=== PATIENT | female | born 1945 | race Caucasian/White ===

== ENCOUNTER 2020-07-09 06:48 | Day surgery (SDC) | payer OTHER, MEDICARE ==
--- NOTE | 2020-06-28 13:14 | RAD REPORT ---
EXAM DESCRIPTION: Mehdi Moody And Brittany (2 Views)06/28/2020 12:58 pm CLINICAL HISTORY: Hypertension/preop for cardiac catheterization COMPARISON: 2017 FINDINGS: 4 centimeter nodule has developed within the right lung base. The remainder lungs appear clear of acute infiltrate. The heart is normal size IMPRESSION: 4 centimeter right lung nodule may represent neoplasm. CT chest is recommended
[2020-06-28 13:33] LABS: Absolute Lymphocytes (CBC) 2.4 K/uL (0.7-4.9); Basophils % 1.1 % (0-1.3); Hematocrit 35.3 % (36.0-45.0); Lymphocytes % 46.3 % (15.3-44.8); MPV 8.7 fL (7.6-11.3); RBC Red Blood Cell Count 3.82 M/uL (3.86-4.86)
[2020-06-28 13:42] LABS: Protime INR 1.06
[2020-06-28 14:00] LABS: Potassium 4.1 mmol/L (3.5-5.1)
--- NOTE | 2020-06-28 15:02 | EKG ---
Test Date: 2020-06-28 Test Time: 11:24:06 Microfilm Processor: AIDEN MEASUREMENT RESULTS: Intervals: Rate: 58 AK: 138 QRSD: 78 QT: 402 QTc: 394 Dalton: P: -30 AK: 138 QRS: 30 T: 66 INTERPRETIVE STATEMENTS: Undetermined rhythm Otherwise normal ECG No previous ECG available for comparison Electronically Signed On 06-28-20 15:01:45 CDT by Thom Montanez
[2020-07-09] MEDS ORDERED: HEPA 1000U/500MLS 2,000 UNIT/1,000 ML BAG IV ONE (07:21)
[2020-07-09] MEDS ORDERED: LIDOCAINE 1% 20 ML MDV ONE (07:21)
[2020-07-09] MEDS ORDERED: NA CHLORIDE 0.9% 500 ML ONE (07:36)
[2020-07-09] MEDS ORDERED: HEPARIN 5000 UNIT/ML 1 ML VIAL ONE (07:48)
[2020-07-09] MEDS ORDERED: MIDAZOLAM HCL 2 MG/2 ML INJ ONE ×2 (07:48→08:00)
[2020-07-09] MEDS ORDERED: FENTANYL CITR 100 MCG/2 ML ONE (07:49)
[2020-07-09] MEDS ORDERED: ATROPINE SULF 1 MG/10 ML SYR IV ONE (07:49)
--- NOTE | 2020-07-09 08:23 | OP ---
Surgeon: Thom Montanez MD Line Up Machine Operator: Mr. Fabian Kennedy. Abdominal aortic aneurysm status post endograft with possible leaks by CT angio. Ms. Sherman is 74, has had a history of hypertension dyslipidemia, PAD brought to the cardiac cath lab radiology technologist today o n 07/09/2020 at 7:30 in the morning. Procedure Performed: Abdominal angiogram. Indication: Abdominal aortic aneurysm. Description Of Procedure: The patient brought to the cardiac cath lab radiology technologist as an outpatient, prepped and draped i n routine sterile fashion. Given Versed and fentanyl for sedation. A 6-English sheath introduced in the right common femoral artery successfully. Angiography, there was normal. Angio-Seal was used to close the case. A pigtail catheter was advanced above the renals with a 6-English pigtail catheter. Abdominal angiogram revealed a normal endograft was patent. This was an aorto bi-iliac endograft. She had normal renals, no leaks, no dissection, no thrombus. There were no complications. Blood Loss: 5 mL. Anesthesia: Total conscious sedation was 45 minutes. Postoperative Diagnosis: Abdominal aortic aneurysm status post endograft that is patent without any leaks. Plan: To continue medical therapy. The patient will go home in 2 hours. TOMMIE/CHAS Voice ID: [id number] Report ID: [id number]
[2020-07-09 08:42] VITALS: TEMP 97
[2020-07-09 09:41] VITALS: O2SAT 100
[2020-07-09 10:04] VITALS: BP 115/69
== END 2020-07-09 10:08 | disposition home or self-care (01) ==
LOC: CCL 06:48
DX: I71.4 Abdominal aortic aneurysm, without rupture (principal); I25.10 Atherosclerotic heart disease of native coronary artery without angina pectoris; I65.23 Occlusion and stenosis of bilateral carotid arteries; I10 Essential (primary) hypertension; E78.2 Mixed hyperlipidemia; J44.1 Chronic obstructive pulmonary disease with (acute) exacerbation; G62.9 Polyneuropathy, unspecified; Z91.041 Radiographic dye allergy status; E66.9 Obesity, unspecified; Z68.25 Body mass index [BMI] 25.0-25.9, adult; Z20.822 Contact with and (suspected) exposure to COVID-19
CPT/HCPCS: 93005; 85025; 80048; 36415; 85610; 85730; 71046; 36200; 75625; C1893; C1760; J2250 ×2; J3010; J7040; J1644; U0002